=== PATIENT | female | born 1935 | race Two or more races ===

== ENCOUNTER 2016-09-09 15:36 | Inpatient (IN) | payer MEDICARE, OTHER ==
[2016-09-09] VITALS (7 sets, daily range): BP systolic 94–114; BP diastolic 30–61
[~2016-09-09] VITALS: Ht 165.1 cm; Wt 63.5 kg
[~2016-09-09 15:36] MED LIST: IV NS 0.9% 1,000 ML ONE; IV SET PRIMARY 1 EA INFUS.SET MC ONE
--- NOTE | 2016-09-09 15:36 | NUR ---
BIB RA FROM HOME C/O WEAKNESS AND HYPOTENSIVE SBP 71. NAD NOTED. PT AAO X3, SRI LANKAN SPEAKER. DTR AT BEDSIDE. PT PLACED IN GOWN AND MONITOR. AWAITING MD FOR EVAL.
[2016-09-09] MEDS ORDERED: IV NS 0.9% 1,000 ML ONE (15:46)
[2016-09-09] MEDS ORDERED: SECONDARY IV SET 1 EA INFUS.SET MC ONE ×2 (15:46→18:31)
[2016-09-09 15:58] LABS: BASOPHILS # (AUTO) 0.4 /CMM (0.0-0.2); BASOPHILS % (AUTO) 2.9 % (0.0-2.0); EOSINOPHILS # (AUTO) 0.2 /CMM (0.0-0.7); EOSINOPHILS % (AUTO) 1.5 % (0.0-6.0); HEMATOCRIT 38 % (33-45); HEMOGLOBIN 12.8 g/dL (11.5-14.8); LYMPHOCYTES # (AUTO) 1.5 /CMM (0.8-4.8); LYMPHOCYTES % (AUTO) 11.1 % (20.0-44.0); MEAN CORPUSCULAR HEMOGLOBIN 28 PG (26.0-33.0); MEAN CORPUSCULAR HGB CONC 34 g/dl (31.0-36.0); MEAN CORPUSCULAR VOLUME 85 fL (82-100); MONOCYTES # (AUTO) 0.5 /CMM (0.1-1.30); MONOCYTES % (AUTO) 3.9 % (2.0-12.0); NEUTROPHILS # (AUTO) 10.9 /CMM (1.8-8.9); NEUTROPHILS % (AUTO) 80.6 % (43.0-81.0); PLATELET COUNT (AUTO) 173 /CMM (150-450); RDW COEFFICIENT OF VARIATION 12.2 (11.5-15.0); RED BLOOD CELL COUNT(AUTO) 4.49 MIL/uL (4.0-5.2); WHITE BLOOD COUNT (AUTO) 13.5 K/uL (4.3-11.0)
[2016-09-09] MEDS ORDERED: IV NS 0.9% 1,000 ML BAG IV ONE (16:00)
[2016-09-09 16:11] LABS: ACETAMINOPHEN 0 ug/ml (10-30); ALANINE AMINOTRANSFERASE 482 U/L (12-78); ALBUMIN 2.4 g/dL (3.4-5.0); ALKALINE PHOSPHATASE 57 U/L (46-116); ASPARTATE AMINOTRANSFERASE 363 U/L (15-37); BILIRUBIN,DIRECT 0.1 mg/dL (0.0-0.2); BILIRUBIN,TOTAL 0.4 mg/dL (0.2-1.0); CALCIUM, SERUM 9.5 mg/dL (8.5-10.1); CARBON DIOXIDE 18 mmol/L (21-32); CHLORIDE 100 mmol/L (98-107); GLUCOSE 117 mg/dL (74-106); POTASSIUM 4.6 mmol/L (3.5-5.1); SALICYLATE 2.5 mg/dL (2.8-20.0); SODIUM SERUM 135 mmol/L (136-145); TOTAL PROTEIN, SERUM 6.3 g/dL (6.4-8.2)
[2016-09-09 16:13] LABS: TROPONIN I < 0.017 ng/mL (0.00-0.056); UREA NITROGEN, BLOOD 117 mg/dL (7-18)
--- NOTE | 2016-09-09 16:13 | NUR ---
bun 117 reported by lab
[2016-09-09 16:19] LABS: INR 0.95 (0.87-1.13); PROTHROMBIN TIME 9.9 SECS (9.5-12.7)
[2016-09-09 16:29] LABS: SERUM AMMONIA 19 umol/L (11-32)
[2016-09-09 16:35] LABS: LACTIC ACID 1.6 mmol/L (0.4-2.0)
--- NOTE | 2016-09-09 16:41 | NUR ---
CALLED NURSING SUP FOR MED SURG BED
--- NOTE | 2016-09-09 16:44 | NUR ---
CALLED PANEL DR LEIDY ARMENTA PAGED
[2016-09-09 16:47] LABS: PARTIAL THROMBOPLASTIN TIME > 170 SEC (23-34)
--- NOTE | 2016-09-09 16:53 | NUR ---
PT REFUSED ULTRASOUND. AWARE.
--- NOTE | 2016-09-09 16:54 | NUR ---
CANCELLED MS BED AND INFORMED DR.SAM Foster THAT WE MEANT TO PAGE HIM FOR BED 7 NOT THIS PT.
[2016-09-09 16:55] LABS: CREATINE KINASE MB 122.4 ng/mL (0-3.6)
[2016-09-09] MEDS ORDERED: CALC0.258 PO (16:58)
[2016-09-09] MEDS ORDERED: IBAN150T PO (16:58)
[2016-09-09] MEDS ORDERED: CELE50CA PO (16:58)
[2016-09-09] MEDS ORDERED: MIRT30TA7 PO (16:58)
[2016-09-09] MEDS ORDERED: ZOLP5TAB2 PO (16:58)
[2016-09-09] MEDS ORDERED: SUMA100T PO (16:58)
[2016-09-09] MEDS ORDERED: EZET10TA PO (16:58)
[2016-09-09] MEDS ORDERED: CALC500T51 PO (16:58)
[2016-09-09] MEDS ORDERED: CHOL200026 PO (16:58)
[2016-09-09] MEDS ORDERED: SPIR25TA PO (16:58)
[2016-09-09] MEDS ORDERED: ASPI81TA2 PO (16:58)
[2016-09-09] MEDS ORDERED: MEMA1CAP4 PO (16:58)
[2016-09-09] MEDS ORDERED: TRAM50TA2 PO (16:58)
[2016-09-09] MEDS ORDERED: SIMV40TA5 PO (16:58)
[2016-09-09] MEDS ORDERED: DONE10TA44 PO (16:58)
[2016-09-09] MEDS ORDERED: CLOP75TA2 PO (16:58)
[2016-09-09] MEDS ORDERED: TOPI-67 PO (16:58)
[2016-09-09] MEDS ORDERED: IBUP-1482 PO (16:58)
[2016-09-09] MEDS ORDERED: IV NS 0.9% 500 ML BAG IV ONE (17:00)
--- NOTE | 2016-09-09 17:17 | NUR ---
DR FORBES AT BEDSIDE FOR EVAL.
[2016-09-09] MEDS ORDERED: VANCOMYCIN 0.75 GM in IV D5W 250 ML IV ONE (17:30)
[2016-09-09] MEDS ORDERED: PIPERACILLIN /TAZOBACTAM 2.25 G in IV D5W 50 ML IV ONE (17:30)
[2016-09-09] MEDS ORDERED: IV SET PRIMARY PUMP SET 1 EA INFUS.SET MC ONE ×2 (17:37→18:31)
--- NOTE | 2016-09-09 17:37 | NUR ---
REPORT GIVEN TO STEVE DEL VALLE FOR RAFI
--- NOTE | 2016-09-09 17:37 | NUR ---
RN NOTES RECEIVED REPORT FROM LABORER DAIRY FARMELIGIO EVERETT, AWAITING FOR PTS ARRIVAL TO UNIT.
[2016-09-09 17:53] LABS: APPEARANCE,URINE Clear (CLEAR); BILIRUBIN,URINE Negative (NEGATIVE); BLOOD, URINE Moderate Ery/uL (NEGATIVE); COLOR,URINE Yellow (YELLOW); KETONES,URINE Negative (NEGATIVE); LEUKOCYTE ESTERASE ,URINE Small (NEGATIVE); NITRITE, URINE Negative (NEGATIVE); PH,URINE 5.5 (5.0-8.0); PROTEIN,URINE Trace mg/dl (NEGATIVE); UGLUCOSE Negative (NEGATIVE); UROBILINOGEN,URINE 0.2 EU/dL (0.2)
[2016-09-09] MEDS ORDERED: IV NS 0.9% 1,000 ML IV PRN (17:53)
[2016-09-09] MEDS ORDERED: ONDANSETRON HCL/PF 4 MG/2 ML VIAL IVP PRN (18:00)
[2016-09-09 18:15] LABS: ADD URINE CULTURE YES; BACTERIA,URINE Many /HPF (None Seen); SQUAMOUS EPITHELIAL CELL,UR Few /HPF (None Seen)
--- NOTE | 2016-09-09 19:31 | NUR ---
PEDIGREE TRACER NOTE 182: Admitted 80y/o Polish speaking from ER. Noted with confusion, able to follow commands. No respiratory distress noted, on 2LPM of O2 via NC tolerated well. With PIVs itnact, with episode of removing LFA PIV, placed new g20 on LFA, with RAC g18. Vanco ongoing, started on IVF NS @75. 1850: Sanford cath inserted as ordered, patient tolerated well. gathered 850mL of clear yellow urine. Daughter came and did translation for the patient. Endorsed to Linda RN for RAFI. No active bleeding noted at this time. Skin assessment done, taken pictures and attached to chart. Followed up with Nsg Wood Tile Installer for food for the patient, kitchen is close, patient aware.
--- NOTE | 2016-09-09 20:00 | NUR ---
INSTRUCTIONAL ASSISTANT RECEIVED PT IN BED AWAKE AND ALERT PER DAUGHTER. PT IS SLOVAK SPEAKING. IV ACCESS INTACT AND PATENT. IVF RUNNING WELL. FC IN PLACE . PT ON 2L NO SOB NOTED. WARM BLANKETS PROVIDED. SNACK PROVIDED. PTS DAUGHTER IS REQUESTING SLEEP AID. SPOKE TO HEALTH FACILITIES SURVEYOR DR BOSS . GAVE ON TIME ORDER FOR KATIUSKA .
--- NOTE | 2016-09-09 20:10 | NUR ---
ENTERPRISE PROJECT MANAGER KATIUSKA NOT GIVEN DUE TO LOW BP . WILL CONTINUE TO MONITOR .
[2016-09-09] MEDS ORDERED: ZOLPIDEM TARTRATE 5 MG TABLET PO ONE (20:30)
--- NOTE | 2016-09-09 22:05 | NUR ---
FORENSIC NURSE PT CKMB AND TROPONIN ELEVATED . DR BOSS AWARE . ORDERED TO RECHECK IN AM
[2016-09-10] VITALS (44 sets, daily range): BP systolic 70–104; BP diastolic 26–59
--- NOTE | 2016-09-10 01:00 | NUR ---
GERIATRIC NURSE PT IS AGITATED AND CONFUSED. PT ATTEMPTING TO GET OOB . PT ALSO PULLED OUT IV CATHETERS DESPITE CLOSE SUPERVISION .. CATHETER TIPS INTACT. DR BOSS AT BEDSIDE AND GAVE ORDER FOR RESTRAINTS .
[2016-09-10] MEDS ORDERED: IV SET PRIMARY PUMP SET 1 EA INFUS.SET MC ONE (03:16)
[2016-09-10 05:14] LABS: BASOPHILS % (AUTO) 0.3 % (0.0-2.0); EOSINOPHILS # (AUTO) 0.2 /CMM (0.0-0.7); EOSINOPHILS % (AUTO) 1.7 % (0.0-6.0); HEMATOCRIT 36 % (33-45); HEMOGLOBIN 11.9 g/dL (11.5-14.8); LYMPHOCYTES # (AUTO) 1.1 /CMM (0.8-4.8); LYMPHOCYTES % (AUTO) 8.1 % (20.0-44.0); MEAN CORPUSCULAR HEMOGLOBIN 28 PG (26.0-33.0); MEAN CORPUSCULAR HGB CONC 33 g/dl (31.0-36.0); MEAN CORPUSCULAR VOLUME 85 fL (82-100); MONOCYTES # (AUTO) 0.6 /CMM (0.1-1.30); MONOCYTES % (AUTO) 4.7 % (2.0-12.0); NEUTROPHILS # (AUTO) 11.6 /CMM (1.8-8.9); NEUTROPHILS % (AUTO) 85.2 % (43.0-81.0); PLATELET COUNT (AUTO) 269 /CMM (150-450); RDW COEFFICIENT OF VARIATION 13.6 (11.5-15.0); RED BLOOD CELL COUNT(AUTO) 4.21 MIL/uL (4.0-5.2); WHITE BLOOD COUNT (AUTO) 13.7 K/uL (4.3-11.0)
[2016-09-10 05:34] LABS: ALBUMIN 2.2 g/dL (3.4-5.0); BILIRUBIN,TOTAL 0.5 mg/dL (0.2-1.0); CALCIUM, SERUM 9.3 mg/dL (8.5-10.1); MAGNESIUM 2.1 mg/dL (1.8-2.4); PHOSPHORUS 5.7 mg/dL (2.5-4.9); POTASSIUM 3.6 mmol/L (3.5-5.1); TOTAL PROTEIN, SERUM 5.6 g/dL (6.4-8.2)
[2016-09-10 05:46] LABS: THYROID STIMULATING HORMONE 1.49 uIU/mL (0.358-3.74)
[2016-09-10] MEDS: IV NS 0.9% 1,000 ML IV PRN ×3 (07:00→23:19)
--- NOTE | 2016-09-10 07:18 | NUR ---
RESTAURANT SHIFT SUPERVISOR NOTES RECEIVED PATIENT AOX2 CONFUSED , REORIENT PT TO PLACE DATE AND TIME , NOT IN ACUTE DISTRESS , RESPIRATIONS EVEN AND UNLABORED , SPO2 OF 98% VIA RA , SR 78 ON BEDSIDE MONITOR , FC DRAINING WELL VIA GRAVITY WITH CLEAR YELLOW URINE , IV OF L FA # 22 , LFA # 22 PATENT AND INTACT WITH IVF OF NS @ 125ML/HR INFUSING WELL , ALL NEEDS ATTENDED , BED ON LOW AND LOCKED POSITION , SIDE RAILS X2 ,CALL LIGHT WITHIN REACH , WILL CONTINUE TO MONITOR .
--- NOTE | 2016-09-10 07:27 | NUR ---
RN :UPDATES GIVEN TO DAUGHTER. AWARE OF USE OF RESTRAINTS AND AGREED WITH PLAN OF CARE.
[2016-09-10] MEDS: PANTOPRAZOLE 40 MG TABLET.DR PO SCH (08:10)
--- NOTE | 2016-09-10 08:12 | NUR ---
WOUND CARE CONSULT: PT PRESENTS WITH LEFT ANKLE OPEN WOUND AND PROXIMAL AREA OF INTACT BLISTERING, PRESENT ON ADMISSION. LEFT LEG IS QUITE EDEMATOUS. LEG ELEVATED ON PILLOW. RECOMMEND SURGICAL CONSULT. RECOMMENDATIONS MADE FOR WOUND CARE AND SKIN PROTECTION. DISCUSSED WITH NURSING STAFF. PT ON [employer] PRESSURE REDISTRIBUTION MATTRESS. WILL SEE PRN. RAYMUNDO IN AGREEMENT WITH PLAN OF CARE. Addendum: 09/10/16 at 813 by AYAZ LANCE Amended: Links added. Addendum: 09/10/16 at 14 by AYAZ MCGUIREU DENIS SCORE IS 15.
--- NOTE | 2016-09-10 08:15 | NUR ---
VETERINARY ATTENDANT NOTES WOUND NURSE AT BEDSIDE FOR WOUND EVALUATION , WOUND TREATMENT CARRIED OUT , WILL CONTINUE TO MONITOR
[2016-09-10] MEDS ORDERED: HYDROGEL DRESSING 90 GM TUBE TP PRN (08:30)
[2016-09-10] MEDS: HYDROGEL DRESSING 90 GM TUBE TP SCH (09:02)
--- NOTE | 2016-09-10 10:54 | NUR ---
LOCAL COMPANY TANKER DRIVER NOTES DR HERNANDEZ AT BEDSIDE , NOTIFIED PT CC AND DIAGNOSIS , NOTIFIED PT URINALYSIS , AND LABORATORY RESULT FOR TODAY , PT HAS LEFT ANKLE WOUND WITH MINIMAL YELLOWISH DRAINAGE , WBC OF 13.7 , AFEBRILE , URINE CULTURE SHOWS GRAM NEGATIVE RODS , BLOOD CULTURE PRELIMINARY NO GROWTH , ON IVF OF NS @ 125ML/HR , PER MD OBTAIN WOUND CULTURE OF LEFT ANKLE . ORDERS CARRIED OUT
--- NOTE | 2016-09-10 10:58 | NUR ---
FORMULATION CHEMIST NOTES WOUND CULTURE OF THE LEFT ANKLE OBTAINED AND SENT TO LAB
--- NOTE | 2016-09-10 11:30 | NUR ---
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
--- NOTE | 2016-09-10 14:20 | NUR ---
SNAKER TRACTOR DRIVER NOTES DR FORBES AT BEDSIDE NOTIFIED PT LABS , NO IV ANTIBIOTIC ORDERED . PER MD ORDER START PT ZOSYN 2.25 Q8 , LEFT ANKLE WOUND XRAY RESULT RELAYED , DR SINGH ORDERED DUPLEX VENOUS STUDIES ,TO R/O DVT , BUN 101 . CREA 4.0 WITH GOOD URINE OUTPUT , SR 65 ON BEDSIDE MONITOR , ON IVF OF NS @ 125ML/HR , MD AWARE .
[2016-09-10] MEDS ORDERED: SECONDARY IV SET 1 EA INFUS.SET MC ONE (14:24)
--- NOTE | 2016-09-10 14:40 | NUR ---
RESTORATIVE ART EMBALMER NOTES DR KHOURY AT BEDSIDE TO EVALUATE LEFT ANKLE WOUND , WOUND TX ORDERS CARRIED OUT ,WILL CONTINUE TO MONITOR
[2016-09-10] MEDS: PIPERACILLIN /TAZOBACTAM 2.25 G in IV D5W 50 ML IV SCH ×2 (14:50→21:51)
[2016-09-10] MEDS ORDERED: FEE PK DOSING 1 MIN EA MC ONE (16:11)
[2016-09-10] MEDS: SILVER SULFADIAZINE CREAM 25 GM TUBE TP SCH (16:31)
[2016-09-11] VITALS (19 sets, daily range): BP systolic 91–132; BP diastolic 49–65
[2016-09-11 04:55] LABS: BASOPHILS % (AUTO) 0.4 % (0.0-2.0); EOSINOPHILS # (AUTO) 0.2 /CMM (0.0-0.7); HEMATOCRIT 30 % (33-45); HEMOGLOBIN 10.2 g/dL (11.5-14.8); LYMPHOCYTES # (AUTO) 1.3 /CMM (0.8-4.8); LYMPHOCYTES % (AUTO) 11.8 % (20.0-44.0); MEAN CORPUSCULAR HEMOGLOBIN 29 PG (26.0-33.0); MEAN CORPUSCULAR HGB CONC 34 g/dl (31.0-36.0); MEAN CORPUSCULAR VOLUME 85 fL (82-100); MONOCYTES # (AUTO) 0.8 /CMM (0.1-1.30); MONOCYTES % (AUTO) 7.1 % (2.0-12.0); NEUTROPHILS # (AUTO) 8.3 /CMM (1.8-8.9); NEUTROPHILS % (AUTO) 78.7 % (43.0-81.0); PLATELET COUNT (AUTO) 244 /CMM (150-450); RDW COEFFICIENT OF VARIATION 13.5 (11.5-15.0); RED BLOOD CELL COUNT(AUTO) 3.57 MIL/uL (4.0-5.2); WHITE BLOOD COUNT (AUTO) 10.6 K/uL (4.3-11.0)
[2016-09-11 05:08] LABS: ALBUMIN 1.9 g/dL (3.4-5.0); BILIRUBIN,TOTAL 0.6 mg/dL (0.2-1.0); CALCIUM, SERUM 8.7 mg/dL (8.5-10.1); CREATININE 2.6 mg/dL (0.6-1.3); MAGNESIUM 1.7 mg/dL (1.8-2.4); PHOSPHORUS 4.1 mg/dL (2.5-4.9); POTASSIUM 3.2 mmol/L (3.5-5.1); TOTAL PROTEIN, SERUM 4.9 g/dL (6.4-8.2)
[2016-09-11] MEDS: PIPERACILLIN /TAZOBACTAM 2.25 G in IV D5W 50 ML IV SCH ×2 (05:09→11:59)
[2016-09-11 05:11] LABS: TROPONIN I 0.035 ng/mL (0.00-0.056)
[2016-09-11 06:26] LABS: CREATINE KINASE MB 36.8 ng/mL (0-3.6)
[2016-09-11] MEDS: IV NS 0.9% 1,000 ML IV PRN (07:22)
[2016-09-11 07:59] LABS: APPEARANCE,URINE CLEAR (CLEAR); BILIRUBIN,URINE NEGATIVE (NEGATIVE); BLOOD, URINE 1+ Ery/uL (NEGATIVE); COLOR,URINE YELLOW (YELLOW); KETONES,URINE NEGATIVE (NEGATIVE); LEUKOCYTE ESTERASE ,URINE NEGATIVE (NEGATIVE); NITRITE, URINE NEGATIVE (NEGATIVE); PROTEIN,URINE NEGATIVE (NEGATIVE); UGLUCOSE NEGATIVE (NEGATIVE); UROBILINOGEN,URINE 0.2 EU/dL (0.2)
[2016-09-11 08:07] LABS: CREATININE, URINE 44.8 MG/DL (30.0-125.0)
[2016-09-11] MEDS ORDERED: SECONDARY IV SET 1 EA INFUS.SET MC ONE ×3 (08:40→21:50)
[2016-09-11] MEDS: HYDROGEL DRESSING 90 GM TUBE TP SCH (08:46)
[2016-09-11] MEDS: POTASSIUM CHLORIDE 20 MEQ TAB.PRT.SR PO SCH ×2 (08:46→10:07)
[2016-09-11] MEDS: PANTOPRAZOLE 40 MG TABLET.DR PO SCH (08:46)
[2016-09-11] MEDS: Magnesium 1GM/D5W 100ML PREMIX 100 ML IV SCH ×2 (08:46→10:07)
[2016-09-11] MEDS: SILVER SULFADIAZINE CREAM 25 GM TUBE TP SCH ×2 (08:47→17:07)
[2016-09-11 09:34] LABS: ADD URINE CULTURE NO; BACTERIA,URINE None seen /HPF (None Seen); RBC,URINE 0-2 /HPF (0-2); SQUAMOUS EPITHELIAL CELL,UR Few /HPF (None Seen); WBC,URINE NONE SEEN /HPF (0-3)
[2016-09-11 09:56] LABS: EOSINOPHIL,URINE None Seen
--- NOTE | 2016-09-11 12:00 | NUR ---
KITCHEN SUPERVISOR ADMITTING NOTES: Rec'd pt from RIGHT OF WAY CUTTER Spike, A&O x2 w/ periods of confusion, not in any distress, denies chest pain. Pt on room air saturating at 93%, no SOB. On telemonitoring, SR w/ HR 64. Pt has 2 L FA G22, #1 infusing w/ NS 1L x 125 cc/hr, #2 SL, flushed, both patent & intact w/ no signs of infection/ infiltration noted. Pt has L ankle wound w/ intact dressing. Has B soft restraints on wrist, checked & monitored skin & circulation. Provided comfort & safety measures. Bed kept low & in locked position. Call light placed w/in reached. Will continue to monitor.
[2016-09-11] MEDS: Potassium Chloride 40 MEQ in IV D5W 1,000 ML IV PRN (14:21)
[2016-09-11] MEDS ORDERED: VANCOMYCIN 0.75 GM in IV D5W 250 ML IV SCH (15:00)
[2016-09-11] MEDS ORDERED: IV SET PRIMARY PUMP SET 1 EA INFUS.SET MC ONE (16:56)
[2016-09-11] MEDS: LACTOBACILLUS RHAMNOSUS GG 1 EACH CAP.SPRINK PO SCH (17:06)
--- NOTE | 2016-09-11 19:00 | NUR ---
COPY CENTER SPECIALIST CLOSING NOTES: No acute changes w/in shift. Pt not in any distress on room air. On telemonitor pt is SR, HR at 65. Pt kept on bilateral soft restraints, pulled one of her IV line LFA G22. Pt's other LFA G22 w/ KCL 40 meqs in 1L D5W infusing well, patent, C/D/I, no signs of infection/ infiltration noted. Pt's FC patent & intact draining to adequate yellow urine output. Offered bed bath but pt's son Keo said to let her rest for now. Turned & repositioned, offload heels. Kept dry, warm & comfortable. Wound care done. Needs attended. Call light placed w/in reached. Bed kept low & in locked position. Endorsed to PM ELIGIO Servin for RAFI.
--- NOTE | 2016-09-11 19:30 | NUR ---
RN INITIAL NOTE RECEIVED PT IN NO ACUTE DISTRESS IN BED. PT IS A/O X 2 AND IS BRAZILIAN SPEAKING. PT IS ON RA AND TOLERATING WELL WITH O2 SAT @ 98%. PT IS ON TELE WITH SR ON THE MONITOR. PT HAS F/C THAT IS CLEAN DRY INTACT AND PATENT WITH CLEAR LUIS COLOR URINE DRAINING. PT HAS LFA 22G THAT IS CLEAN DRY INTACT AND PATENT WITH KCL 40MEQ IN D5W @ 125ML/HR. BED IN LOW LOCK POSITION WITH RIALS UP X 2. CALL LIGHT WITHIN REACH AND ALL SAFETY MEASURES ENSURED AND CARRIED OUT. WILL CONTINUE TO MONITOR PT.
[2016-09-11] MEDS: CEFAZOLIN 1 GM in IV D5W 50 ML IV SCH (21:51)
[2016-09-11] MEDS ORDERED: risperiDONE 0.25 MG TABLET PO SCH (22:00)
[2016-09-11] MEDS: MIRTAZAPINE 15 MG TABLET PO SCH (22:00)
[2016-09-12] VITALS: BP 112/57
[2016-09-12] MEDS: Potassium Chloride 40 MEQ in IV D5W 1,000 ML IV PRN ×2 (01:16→13:34)
[2016-09-12 04:00] VITALS: BP 123/63
[2016-09-12] MEDS: CEFAZOLIN 1 GM in IV D5W 50 ML IV SCH ×3 (06:01→21:47)
[2016-09-12 06:05] LABS: BASOPHILS % (AUTO) 0.4 % (0.0-2.0); EOSINOPHILS # (AUTO) 0.2 /CMM (0.0-0.7); EOSINOPHILS % (AUTO) 2.2 % (0.0-6.0); HEMATOCRIT 31 % (33-45); HEMOGLOBIN 10.3 g/dL (11.5-14.8); LYMPHOCYTES # (AUTO) 1.8 /CMM (0.8-4.8); LYMPHOCYTES % (AUTO) 16.1 % (20.0-44.0); MEAN CORPUSCULAR HEMOGLOBIN 28 PG (26.0-33.0); MEAN CORPUSCULAR HGB CONC 33 g/dl (31.0-36.0); MEAN CORPUSCULAR VOLUME 84 fL (82-100); MONOCYTES # (AUTO) 0.9 /CMM (0.1-1.30); MONOCYTES % (AUTO) 7.9 % (2.0-12.0); NEUTROPHILS # (AUTO) 8.3 /CMM (1.8-8.9); NEUTROPHILS % (AUTO) 73.4 % (43.0-81.0); PLATELET COUNT (AUTO) 234 /CMM (150-450); RDW COEFFICIENT OF VARIATION 13.3 (11.5-15.0); RED BLOOD CELL COUNT(AUTO) 3.67 MIL/uL (4.0-5.2); WHITE BLOOD COUNT (AUTO) 11.4 K/uL (4.3-11.0)
[2016-09-12 06:19] LABS: ALBUMIN 1.8 g/dL (3.4-5.0); BILIRUBIN,TOTAL 0.4 mg/dL (0.2-1.0); CALCIUM, SERUM 8.1 mg/dL (8.5-10.1); CREATININE 1.7 mg/dL (0.6-1.3); MAGNESIUM 1.5 mg/dL (1.8-2.4); PHOSPHORUS 1.4 mg/dL (2.5-4.9); POTASSIUM 3.6 mmol/L (3.5-5.1); TOTAL PROTEIN, SERUM 4.7 g/dL (6.4-8.2)
--- NOTE | 2016-09-12 06:44 | NUR ---
RN CLOSING NOTE PT REMAINS IN NO ACUTE DISTRESS. PT DID NOT HAVE ANY SIGNIFICANT CHANGE IN CONDITION DURING SHIFT. ALL NEEDS MET ALL ORDERS CARRIED OUT. WILL ENDORSE TO AM RN FOR CONTINUITY OF CARE.
--- NOTE | 2016-09-12 07:20 | NUR ---
RN INITIAL NOTES: Rec'd pt asleep on bed, easily arousable, A&O x2 w/ periods of confusion, not in any distress, denies chest pain. Pt on room air saturating at 90%, no SOB. On telemonitoring, SR w/ HR 65. Pt has L FA G22, infusing w/ KCL 40 meqs in D5W at 125 cc/hr, infusing well, patent & intact w/ no signs of infection/ infiltration noted. Has FC patent & intact draining to adequate yellow urine output. Pt has L ankle wound w/ intact dressing. Has B soft restraints on wrist, checked & monitored skin & circulation. Kept warm & comfortable. Bed kept low & in locked position. Will turn & reposition, offload heels as per protocol. Call light placed w/in reached. Will continue to monitor.
[2016-09-12 08:00] VITALS: BP 132/64
--- NOTE | 2016-09-12 08:00 | NUR ---
RN NOTES: Pt seen & examined by Dr. Fortune w/ orders made & carried out.
[2016-09-12] MEDS ORDERED: POTASSIUM PHOSPHATE MM 15 MMOL in IV D5W 250 ML IV SCH (08:30)
[2016-09-12] MEDS: PANTOPRAZOLE 40 MG TABLET.DR PO SCH (08:56)
[2016-09-12] MEDS: LACTOBACILLUS RHAMNOSUS GG 1 EACH CAP.SPRINK PO SCH ×2 (08:56→17:30)
[2016-09-12] MEDS ORDERED: POTASSIUM PHOSPHATE MM 7.5 MMOL in IV D5W 100 ML IV SCH (09:00)
[2016-09-12] MEDS ORDERED: SECONDARY IV SET 1 EA INFUS.SET MC ONE (09:37)
[2016-09-12] MEDS: HYDROGEL DRESSING 90 GM TUBE TP SCH (09:42)
[2016-09-12] MEDS: Magnesium 1GM/D5W 100ML PREMIX 100 ML IV SCH ×2 (09:42→10:48)
[2016-09-12] MEDS: SILVER SULFADIAZINE CREAM 25 GM TUBE TP SCH ×2 (09:42→17:30)
[2016-09-12] MEDS ORDERED: IV SET PRIMARY 1 EA INFUS.SET MC ONE (10:02)
[2016-09-12] MEDS ORDERED: IV SET PRIMARY PUMP SET 1 EA INFUS.SET MC ONE (10:13)
[2016-09-12] MEDS: POTASSIUM PHOSPHATE MM 7.5 MMOL in IV D5W 100 ML IV SCH ×2 (10:34→12:30)
--- NOTE | 2016-09-12 11:15 | NUR ---
RN NOTES: Pt seen & examined by Dr. Loyd.
[2016-09-12 12:42] LABS: *SPE ALBUMIN 2.1 g/dL (2.9-4.4); *SPE ALPHA-1-GLOBULIN 0.3 g/dL (0.0-0.4); *SPE ALPHA-2-GLOBULIN 0.8 g/dL (0.4-1.0); *SPE BETA GLOBULIN 0.6 g/dL (0.7-1.3); *SPE GLOBULIN, TOTAL 2.1 g/dL (2.2-3.9); *SPE M-SPIKE Not Observed g/dL (Not Observed); *SPE PROTEIN TOTAL 4.2 g/dL (6.0-8.5); *SPEGAMMA GLOBULIN 0.4 g/dL (0.4-1.8); VIT D, 25-HYDROXY 40.1 ng/mL (30.0-100.0)
--- NOTE | 2016-09-12 14:00 | NUR ---
RN NOTES: PT evaluation done c/o Viridiana.
[2016-09-12 14:03] LABS: PTH, INTACT 12 pg/mL (15-65)
[2016-09-12 16:00] VITALS: BP 119/60
[2016-09-12] MEDS ORDERED: IV NS 0.9% 250 ML IV ONE (17:00)
[2016-09-12] MEDS ORDERED: VANCOMYCIN 0.75 GM in IV D5W 250 ML IV SCH (17:00)
[2016-09-12] MEDS ORDERED: VANCOMYCIN 1 GM in IV D5W 250 ML IV SCH (18:00)
--- NOTE | 2016-09-12 18:36 | NUR ---
RN CLOSING NOTES: No acute changes w/in shift. Pt A&Ox2 still w/ periods of confusion, not in any distress. Pt on room air saturating at 97%. Pt has patent & intact FC draining to adequate urine output. Has patent & intact LFA G22 PL with KCL 40 meqs in 1L D5W x 125 cc/hr infusing well, no signs of infection/ infiltration noted. L ankle wound care done. Turned & repositioned, offload heels q2h. Monitored bilateral wrist skin & circulation. Pt kept comfortable, warm & rested. Will endorse to PM RN for RAFI.
--- NOTE | 2016-09-12 19:35 | NUR ---
DIELECTRIC MACHINE OPERATOR DF RECEIVED PT TO ROOM#104 PT A/OX1 CONFUSED.NICARAGUAN SPEAKING. PT AGITATED PT REMOVED SOFT BILATERAL WRIST RESTRAINTS ATTEMPTED TO GET OOB AND REMOVE LEFT AC IV. PT DIRECTED SAFELY BACK TO BED AND PLACED IN SOFT BILATERAL WRIST RESTRAINTS FOR PT SAFETY. PT NON COMPLIANT WITH SAFETY INSTRUCTIONS. PT NON PASHTO SPEAKING LANGUAGE BARRIER. PT SON IS ON HIS WAY. PT VSS,AFERBILE. LEFT LOWER EXTREMITY WOUND WITH DRESSING C/D/I.
[2016-09-12 20:00] VITALS: BP 135/71
--- NOTE | 2016-09-12 20:10 | NUR ---
GRIDDLE COOK DF PT SON AT BEDSIDE PROVIDING TRANSLATION PER SON PT IS CONFUSED AND THINKS SHE IS AT HOME AND THAT THERE ARE STRANGERS IN HER ROOM. PT REORIENTED TO PLACE,TIME,SITUATION. PT ORIENTED TO PERSON ONLY. PT UNCOOPERATIVE WITH MAXX CANNON AND MYSELF WHEN ATTEMPTING TO PROVIDE PT WITH A BED PABON. CIPRIANO GARCIA RN AND RONNIE LILLY PROVIDED PT WITH BED PABON BM LOOSE STOOL X1. MAXX TRUJILLO ASSIGNED TO PT. VSS. NAD NOTED.
[2016-09-12] MEDS: MIRTAZAPINE 15 MG TABLET PO SCH (21:47)
--- NOTE | 2016-09-12 22:25 | NUR ---
RN DF PT SON DEPARTING FOR THE EVENING PT GIVEN REMERON AT PT MORE COOPERATIVE AT THIS TIME. PT PLACED BACK IN SOFT BILATERAL WRIST RESTRAINTS AND BED ALARM ON.
--- NOTE | 2016-09-13 00:32 | NUR ---
RN DF OBSERVED PT ATTEMPTING TO GET OUT OF BED. PT REMOVED RESTRAINTS AND REMOVED LEFT AC G22 WITH TIP INTACT SITE BENIGN. I PLACED A NEW IV TO RIGHT HAND WRAPPED WITH KERLIX WRAP TO PREVENT PT REMOVAL. PT COOPERATIVE.PT PLACED BACK IN BILATERAL SOFT WRIST RESTRAINTS FOR SAFETY. BED ALARM. RN,S WORKSTATION IN FRONT OF PT,S ROOM.
[2016-09-13 04:00] VITALS: BP 127/63
[2016-09-13] MEDS: CEFAZOLIN 1 GM in IV D5W 50 ML IV SCH ×2 (04:17→13:03)
[2016-09-13] MEDS: Potassium Chloride 40 MEQ in IV D5W 1,000 ML IV PRN (04:18)
[2016-09-13] MEDS: MORPHINE SULFATE INJ 2 MG/ML DISP.SYRIN IV PRN ×2 (04:18→10:29)
--- NOTE | 2016-09-13 04:23 | NUR ---
RN DF PT AGITATED,RESTLESS, GUARDING HER LEFT LOWER LEG WOUND. PT REPORTING PAIN TO LLE 5/10. MEDICATED PT WITH MORPHINE 2MG IVP ZOFRAN 4MG(PT FAMILY STATED PT SOMETIMES GETS NAUSEA WITH PAIN MEDICATION) PT VSS BP 112/55 PT A/0X1. AWAKE,RESTLESS, PT SQUIRMING IN THE BED. PT REPOSITIONED FOR COMFORT. WILL MONITOR FOR EFFECT OF MEDICATIONS.
--- NOTE | 2016-09-13 06:36 | NUR ---
WEIGHT CALCULATOR DF PT WAS COOPERATIVE AND RESTRAINTS WERE REMOVED FOR ABOUT AN HOUR. PT GETTING OUT OF BED BED ALARM ACTIVATED. PT WANTING TO WALK AROUND UNIT AND REFUSES TO GET BACK INTO BED ON HER OWN. WITH ASSISTANCE OF NURSE LARA PT SAFELY PLACED BACK TO BED AND REPLACED INTO SOFT BILATERAL WRIST RESTRAINTS.PMSC INTACT. PT SLOVAK SPEAKING WITH DEMENTIA. VSS.NAD NOTED. PT NOW RESTING COMFORTABLY.
[2016-09-13 07:01] LABS: BILIRUBIN,TOTAL 0.6 mg/dL (0.2-1.0); CALCIUM, SERUM 8.2 mg/dL (8.5-10.1); CREATININE 1.3 mg/dL (0.6-1.3); MAGNESIUM 1.6 mg/dL (1.8-2.4); PHOSPHORUS 2.4 mg/dL (2.5-4.9); POTASSIUM 3.7 mmol/L (3.5-5.1); TOTAL PROTEIN, SERUM 4.8 g/dL (6.4-8.2)
--- NOTE | 2016-09-13 07:20 | NUR ---
RN INITIAL NOTES: Received patient on bed during rounds, awake, restless, tries to get out of bed, and tries to pull out IV plug, able to make needs known at times, needs anticipated and attended. With LFA G22 IV Plug flushed with NS and patent with IVF D5W +40meqKCL at 125cc/hr infusing well. On RA saturating good at 96%. HOB elevated, aspiration precaution observed. NO SOB, No LOC, respirations are even and unlabored, no acute distress noted. Kept clean and dry. Provided safety and comfort measures. Bed low and locked position, fall precaution observed. Will turn and reposition, offload heels as per protocol. With Bilateral soft restrainer for safety, circulation checked as per protocol. To continue to monitor accordingly.
[2016-09-13 08:00] VITALS: BP 121/59
[2016-09-13] MEDS: PANTOPRAZOLE 40 MG TABLET.DR PO SCH (08:22)
[2016-09-13] MEDS: Z GUARD REMEDY 2 OZ OINT TP PRN ×2 (08:22→17:01)
[2016-09-13] MEDS: SILVER SULFADIAZINE CREAM 25 GM TUBE TP SCH ×2 (08:22→17:01)
[2016-09-13] MEDS: HYDROGEL DRESSING 90 GM TUBE TP SCH ×2 (08:22→09:00)
[2016-09-13] MEDS: LACTOBACILLUS RHAMNOSUS GG 1 EACH CAP.SPRINK PO SCH ×2 (08:22→17:00)
--- NOTE | 2016-09-13 10:54 | NUR ---
RN NOTES: Bridgette Pharmacist noted to review and replace as per protocol Mg 1.6.
[2016-09-13] MEDS ORDERED: MAGNESIUM OXIDE 400 MG TABLET PO ONE (12:30)
[2016-09-13] MEDS ORDERED: Magnesium 1GM/D5W 100ML PREMIX 100 ML IV SCH (12:30)
--- NOTE | 2016-09-13 14:24 | NUR ---
RN NOTES: Referred to Dr. Loyd, patient pulled out IV Plug, refused reinsertion, as per MD reeves all IVFs and ATB. Ordered levaquin 500mgs per orem Qd
[2016-09-13] MEDS ORDERED: K PHOS NEUTRAL 250 MG TABLET PO ONE (15:30)
[2016-09-13 16:00] VITALS: BP 112/62
[2016-09-13 17:00] VITALS: BP 112/62
[2016-09-13] MEDS: HYDROCODONE/APAP 5/325MG 1 EACH TABLET PO PRN ×2 (17:00→21:23)
--- NOTE | 2016-09-13 17:09 | NUR ---
RN NOTES; Liv reeves, noted Dr. steward orders to put Silvadene to left left ankle wound.
--- NOTE | 2016-09-13 18:25 | NUR ---
RN NOTES: Patient remain stable within shift, no signs and symptoms of distress noted. Patient appears calm and cooperative with care, not restless and agitated, removed Bilateral soft restrainer as patient doesn't try to take out telemonitoring box so far compliant. Fall precaution observed, low bed and locked, bed alarm on. Seen and examined by LAMPS TESTER AND INSPECTOR Judeen with orders noted and carried out. Oral ATB therapy duration as per LAMPS TESTER AND INSPECTOR Judeen will depend on the CT result. To endorsed to next shift for continuity of care.
[2016-09-13] MEDS: CEPHALEXIN MONOHYDRATE 250 MG CAPSULE PO SCH (19:03)
[2016-09-13 20:00] VITALS: BP 101/60
[2016-09-13] MEDS: MIRTAZAPINE 15 MG TABLET PO SCH (21:21)
[2016-09-14] MEDS: CEPHALEXIN MONOHYDRATE 250 MG CAPSULE PO SCH ×3 (00:41→12:38)
[2016-09-14 04:00] VITALS: BP 91/43
--- NOTE | 2016-09-14 07:31 | NUR ---
RN INITIAL NOTE PT RECEIVED IN BED. RESTING COMFORTABLY. NO S/S OF PAIN OR DISCOMFORT. RESPIRATIONS ARE EVEN AND UNLABORED. SATING WELL ON RA. NO S/S OF RESPIRATORY DISTRESS OR SOB. CERRATO CATHETER DRAINING WITH GRAVITY. SAFETY MEASURES IMPLEMENTED. BED IN LOCKED, LOW POSITION. CALL LIGHT WITHIN REACH. WILL CONTINUE TO MONITOR.
[2016-09-14 07:39] LABS: CALCIUM, SERUM 8.3 mg/dL (8.5-10.1); CREATININE 1.1 mg/dL (0.6-1.3); MAGNESIUM 1.4 mg/dL (1.8-2.4); PHOSPHORUS 3.4 mg/dL (2.5-4.9); POTASSIUM 4.1 mmol/L (3.5-5.1)
[2016-09-14 08:00] VITALS: BP 125/56
[2016-09-14] MEDS ORDERED: LEVOFLOXACIN (500MG) 500 MG TABLET PO SCH (09:00)
[2016-09-14] MEDS: PANTOPRAZOLE 40 MG TABLET.DR PO SCH (09:00)
[2016-09-14] MEDS: LACTOBACILLUS RHAMNOSUS GG 1 EACH CAP.SPRINK PO SCH (09:25)
[2016-09-14] MEDS: SILVER SULFADIAZINE CREAM 25 GM TUBE TP SCH (09:25)
[2016-09-14] MEDS: HYDROCODONE/APAP 5/325MG 1 EACH TABLET PO PRN (10:21)
[2016-09-14] MEDS ORDERED: LEVO750T21 PO (11:01)
[2016-09-14] MEDS ORDERED: Magnesium 1GM/D5W 100ML PREMIX 100 ML IV SCH (11:30)
--- NOTE | 2016-09-14 12:07 | NUR ---
RN NOTE PT SUPPOSED TO BE DISCHARGED TODAY. DAUGHTER CONCERNED THAT LEG PAIN IS NOT UNDER CONTROL. MD CARDOZO MADE AWARE
[2016-09-14] MEDS ORDERED: MAGNESIUM OXIDE 400 MG TABLET PO ONE (12:30)
[2016-09-14] MEDS ORDERED: ACETAMINOPHEN 325 MG TABLET PO PRN (14:00)
[2016-09-14] MEDS ORDERED: LEVOFLOXACIN (250MG) 250 MG TABLET PO SCH (15:30)
[2016-09-14 16:00] VITALS: BP 122/60
--- NOTE | 2016-09-14 17:24 | NUR ---
RN CLOSING NOTE PT DISCHARGED HOME. CERRATO CATHETER REMOVED. NO IV LINES TO D/C. SON, JAY PICKED HER UP.
[2016-09-14] MEDS ORDERED: CELECOXIB 100 MG CAPSULE PO PRN (21:00)
[2016-09-16 12:21] LABS: CALCITRIOL VIT D,1, 25 DIHYDRO 18.1 pg/mL (19.9-79.3)
== END 2016-09-14 17:20 | disposition home health service (06) | DRG 871 ==
LOC: ER 15:38 → ICU 17:35 → TELE1 09-11 12:11 → MEDSG1 09-12 10:33
DX: A41.9 Sepsis, unspecified organism (principal); R65.21 Severe sepsis with septic shock; K72.00 Acute and subacute hepatic failure without coma; G92 Toxic encephalopathy; N17.0 Acute kidney failure with tubular necrosis; L03.116 Cellulitis of left lower limb; M62.82 Rhabdomyolysis; N39.0 Urinary tract infection, site not specified; E87.0 Hyperosmolality and hypernatremia; E87.2 Acidosis; F33.2 Major depressive disorder, recurrent severe without psychotic features; L97.329 Non-pressure chronic ulcer of left ankle with unspecified severity; I10 Essential (primary) hypertension; M19.90 Unspecified osteoarthritis, unspecified site; R00.1 Bradycardia, unspecified; B96.20 Unspecified Escherichia coli [E. coli] as the cause of diseases classified elsewhere; E87.6 Hypokalemia; F03.90 Unspecified dementia, unspecified severity, without behavioral disturbance, psychotic disturbance, mood disturbance, and anxiety; I70.0 Atherosclerosis of aorta; K57.90 Diverticulosis of intestine, part unspecified, without perforation or abscess without bleeding; M43.10 Spondylolisthesis, site unspecified; M47.815 Spondylosis without myelopathy or radiculopathy, thoracolumbar region; M85.80 Other specified disorders of bone density and structure, unspecified site; S90.02XA Contusion of left ankle, initial encounter; Z79.82 Long term (current) use of aspirin; Z91.81 History of falling
CPT/HCPCS: 36415; 70450-TC; 71010-TC; 73610-TC; 73700-TC; 80048-TC; 80053-TC; 80061-TC; 80076-TC; 80202-TC; 81000-TC; 82140-TC; 82306; 82550-TC; 82553-TC; 82570-TC; 82652; 83605-TC; 83735-TC; 83970; 84100-TC; 84155; 84155-TC; 84165; 84300-TC; 84443-TC; 84484-TC; 85025-TC; 85730-TC; 87040-TC; 87070-TC; 87081-TC; 87086-TC; 87186-TC; 93307-TC; 93971-TC; 97001-TC; A4606; A6248; G0480; G6039-TC; J0690; J2270; J2405; J2543; J3370; J3475; J3480; J3490; J7030; J7050; J7060; J7070; Z7610

== ENCOUNTER 2022-04-08 18:39 | Inpatient (IN) | payer MEDICARE, OTHER ==
[~2022-04-08] VITALS: Ht 152.4 cm; Wt 77.6 kg
[~2022-04-08 18:39] MED LIST changes: +ASPI-1169 PO; +CALC0.258 PO; +CALC500T53 PO; +CHOL200026 PO; +CLOP75TA15 PO; +DONE10TA44 PO; +EZET10TA16 PO; +IBAN150T16 PO; -IV NS 0.9% 1,000 ML ONE; -IV SET PRIMARY 1 EA INFUS.SET MC ONE; +LEVO750T21 PO; +MEMA1CAP4 PO; +MIRT-91 PO; +SIMV-49 PO; +SUMA100T PO; +TOPI25TA49 PO; +TRAM50TA2 PO; +ZOLP5TAB2 PO
--- NOTE | 2022-04-08 19:50 | NUR ---
CXR DONE AND SENT TO LAB
[2022-04-08] MEDS ORDERED: PIPERACILLIN /TAZOBACTAM 3.375 G in IV D5W 50 ML IV ONE (20:00)
[2022-04-08] MEDS ORDERED: VANCOMYCIN 1 GM in IV D5W 250 ML IV ONE (20:00)
[2022-04-08] MEDS ORDERED: IV NS 0.9% 1,000 ML BAG IV ONE (20:00)
--- NOTE | 2022-04-08 20:03 | NUR ---
COVID SWAB AND INFLUENZA SWAB DONE AND SENT TO LAB
[2022-04-08] MEDS ORDERED: PIPERACILLIN /TAZOBACTAM 3.375 G VIAL IV ONE (20:05)
[2022-04-08 20:34] LABS: BASOPHILS % (AUTO) 0.2 % (0.0-2.0); HEMATOCRIT 37 % (33-45); HEMOGLOBIN 11.9 g/dL (11.5-14.8); LYMPHOCYTES # (AUTO) 0.8 K/uL (0.8-4.8); LYMPHOCYTES % (AUTO) 4.5 % (20.0-44.0); MEAN CORPUSCULAR HGB CONC 32 g/dl (31.0-36.0); MEAN CORPUSCULAR VOLUME 85 fL (82-100); MONOCYTES % (AUTO) 5.6 % (2.0-12.0); NEUTROPHILS # (AUTO) 16.4 K/uL (1.8-8.9); NEUTROPHILS % (AUTO) 89.7 % (43.0-81.0); PLATELET COUNT (AUTO) 149 K/uL (150-450); WHITE BLOOD COUNT (AUTO) 18.3 K/uL (4.3-11.0)
[2022-04-08 20:43] LABS: CARBON DIOXIDE 26 mmol/L (21-32); CHLORIDE 105 mmol/L (98-107); CREATININE 1.9 mg/dL (0.6-1.3); GLUCOSE 202 mg/dL (74-106); POTASSIUM 3.7 mmol/L (3.5-5.1); SODIUM SERUM 138 mmol/L (136-145); UREA NITROGEN, BLOOD 31 mg/dL (7-18)
--- NOTE | 2022-04-08 20:45 | NUR ---
IV CANNULA G18 INSERTED ON LEFT FA. LINE PATENT AND FLUSHED WITH NS.
[2022-04-08 20:55] LABS: ALANINE AMINOTRANSFERASE 25 U/L (12-78); ALBUMIN 2.8 g/dL (3.4-5.0); ALKALINE PHOSPHATASE 65 U/L (46-116); ASPARTATE AMINOTRANSFERASE 19 U/L (15-37); BILIRUBIN,DIRECT 0.2 mg/dL (0.0-0.2); BILIRUBIN,TOTAL 0.6 mg/dL (0.2-1.0); TOTAL PROTEIN, SERUM 6.4 g/dL (6.4-8.2)
--- NOTE | 2022-04-08 21:00 | NUR ---
IFC F16 INSERTED, URINE SPECIMEN SENT TO LAB
[2022-04-08] MEDS ORDERED: VANCOMYCIN 1 GM VIAL ONE (21:19)
[2022-04-08 21:29] LABS: BILIRUBIN,URINE NEGATIVE (NEGATIVE); COLOR,URINE YELLOW (YELLOW); LEUKOCYTE ESTERASE ,URINE MODERATE (NEGATIVE); NITRITE, URINE POSITIVE (NEGATIVE); PROTEIN,URINE NEGATIVE (NEGATIVE); UGLUCOSE NEGATIVE (NEGATIVE); UROBILINOGEN,URINE 0.2 EU/dL (0.2)
[2022-04-08 21:36] LABS: BACTERIA,URINE Many /HPF (None Seen); SQUAMOUS EPITHELIAL CELL,UR Few /HPF (None Seen)
[2022-04-08] MEDS ORDERED: Z GUARD REMEDY 4 OZ OINT TP PRN (22:30)
[2022-04-08] MEDS ORDERED: HYDROCODONE/APAP 5/325MG TABLET PO PRN (22:30)
[2022-04-08] MEDS ORDERED: TEMAZEPAM 15 MG CAPSULE PO PRN (22:30)
[2022-04-08] MEDS ORDERED: MORPHINE SULFATE INJ 2 MG/ML DISP.SYRIN IV PRN (22:30)
[2022-04-08] MEDS ORDERED: MAG HYDROX/AL HYDROX/SIMETH 30 ML UDC PO PRN (22:30)
[2022-04-08] MEDS ORDERED: LORAZEPAM INJ 2 MG/ML VIAL IV PRN (22:30)
[2022-04-08] MEDS ORDERED: ONDANSETRON HCL/PF 4 MG/2 ML VIAL IVP PRN (22:30)
[2022-04-08] MEDS ORDERED: ACETAMINOPHEN 325 MG TABLET PO PRN (22:30)
[2022-04-08] MEDS ORDERED: MAGNESIUM HYDROXIDE 30 ML UDC PO PRN (22:30)
--- NOTE | 2022-04-08 23:10 | NUR ---
REPORT GIVEN TO RN JESSICA
--- NOTE | 2022-04-08 23:33 | NUR ---
TRANSFERRED TO ROOM
--- NOTE | 2022-04-08 23:45 | NUR ---
ASSOCIATE PROGRAMMERBROADCASTING EQUIPMENT MECHANIC NOTES RECEIVED PATIENT FROM ED VIA GURNEY AT 2321 UNDER THE CARE OF FELIX GARCÍA NP WITH PRIMARY DX OF SEPSIS, UTI AND SECONDARY DX OF ACUTE KIDNEY INJURY. PATIENT IS ASLEEP, ACCOMPANIED BY SON WHO VERBALIZED THAT HIS MOM IS DEMENTED, BUT SHE RESPONDED TO HIS QUESTION. CAYMAN ISLANDER SPEAKING ONLY. BREATHING EVEN AND NON-LABORED ON ROOM AIR. NOT IN APPARENT DISTRESS. NO C/O PAIN OR DISCOMFORT. ON TELE MONITOR READING SINUS RHYTHM AT 74 BPM. HAS LEFT FOREARM IV ACCESS #18G AND SALINE LOCKED. NO S/S OF INFILTRATION NOTED. HAS INDWELLING CERRATO CATHETER DRAINING CLOUDY YELLOW URINE TO BAG BY GRAVITY. SKIN ASSESSMENT DONE AND PHOTOS TAKEN. ALL BELONGINGS ACCOUNTED FOR. BILATERAL SOFT WRIST RESTRAINTS IN PLACE. PATIENT EDUCATION PROVIDED TO SON, VERBALIZED UNDERSTANDING. SAFETY MEASURES IN PLACE: BED LOW AND LOCKED, SIDE RAILS UP X2, CALL LIGHT WITHIN REACH. WILL CONTINUE POC.
[2022-04-09] VITALS (7 sets, daily range): BP systolic 103–157; BP diastolic 43–73
[2022-04-09] MEDS: IV NS 0.9% 1,000 ML IV PRN (00:32)
[2022-04-09] MEDS ORDERED: PIPERACILLIN /TAZOBACTAM 3.375 G VIAL IV ONE (04:34)
[2022-04-09] MEDS ORDERED: PIPERACILLIN /TAZOBACTAM 3.375 G in IV D5W 50 ML IV SCH ×4 (05:00)
[2022-04-09 05:57] LABS: BASOPHILS # (AUTO) 0.1 K/uL (0.0-0.2); BASOPHILS % (AUTO) 0.4 % (0.0-2.0); EOSINOPHILS % (AUTO) 0.4 % (0.0-6.0); HEMATOCRIT 35 % (33-45); HEMOGLOBIN 11.4 g/dL (11.5-14.8); LYMPHOCYTES # (AUTO) 1.5 K/uL (0.8-4.8); LYMPHOCYTES % (AUTO) 8.9 % (20.0-44.0); MEAN CORPUSCULAR HGB CONC 32 g/dl (31.0-36.0); MEAN CORPUSCULAR VOLUME 85 fL (82-100); MONOCYTES # (AUTO) 1.1 K/uL (0.1-1.30); MONOCYTES % (AUTO) 6.8 % (2.0-12.0); NEUTROPHILS # (AUTO) 13.7 K/uL (1.8-8.9); NEUTROPHILS % (AUTO) 83.5 % (43.0-81.0); PLATELET COUNT (AUTO) 136 K/uL (150-450); RED BLOOD CELL COUNT(AUTO) 4.17 MIL/uL (4.0-5.2); WHITE BLOOD COUNT (AUTO) 16.4 K/uL (4.3-11.0)
[2022-04-09 06:16] LABS: CALCIUM, SERUM 8.6 mg/dL (8.5-10.1); CARBON DIOXIDE 24 mmol/L (21-32); CHLORIDE 110 mmol/L (98-107); CREATININE 1.4 mg/dL (0.6-1.3); MAGNESIUM 1.9 mg/dL (1.8-2.4); PHOSPHORUS 3.2 mg/dL (2.5-4.9); POTASSIUM 3.4 mmol/L (3.5-5.1); SODIUM SERUM 142 mmol/L (136-145); UREA NITROGEN, BLOOD 24 mg/dL (7-18)
--- NOTE | 2022-04-09 06:22 | NUR ---
DAY CARE WORKER CLOSING NOTES PATIENT LYING IN BED AWAKE. OPENS EYES TO VERBAL AND TACTILE STIMULI. A/O X1. NO SOB OR NOTED, TOLERATING ROOM AIR WELL. NOT IN ACUTE DISTRESS. CALM AND QUIET AT THIS TIME. NO PAIN OR DISCOMFORT NOTED. AFEBRILE. ON TELE MONITOR READING SINUS RHYTHM WITH PVC AT 73 BPM. HAS LEFT FOREARM IV ACCESS #18G WITH NS RUNNING AT 75 ML/HR. INTACT, PATENT AND FLUSHING. CLEAR YELLOW URINE OUTPUT OF 1800 ML. BILATERAL SOFT WRIST RESTRAINTS IN PLACE, SKIN AND CIRCULATION WNL. ALL DUE MEDS GIVEN AND NEEDS ATTENDED. SAFETY MEASURES MAINTAINED. WILL ENDORSE TO NEXT SHIFT FOR RAFI.
[2022-04-09 06:49] LABS: GLUCOSE 142 mg/dL (74-106)
[2022-04-09 06:52] LABS: THYROID STIMULATING HORMONE 1.321 uIU/mL (0.358-3.74)
[2022-04-09] MEDS: PANTOPRAZOLE 40 MG TABLET.DR PO SCH (07:55)
[2022-04-09] MEDS: ALLOPURINOL 100 MG TABLET PO SCH (08:02)
[2022-04-09] MEDS: CLOPIDOGREL BISULFATE 75 MG TABLET PO SCH (08:02)
[2022-04-09] MEDS: risperiDONE 0.25 MG TABLET PO SCH ×2 (08:02→17:31)
[2022-04-09] MEDS: SERTRALINE HCL 25 MG TABLET PO SCH (08:02)
--- NOTE | 2022-04-09 09:07 | NUR ---
WOUND CARE CONSULT: PT PRESENTS WITH LEFT LOWER LEG DRY WOUND/LESION, PRESENT ON ADMISSION. DPM CONSULT CALLED TO DR GUTIERREZ. RECOMMENDATIONS MADE FOR SKIN PROTECTION. DISCUSSED WITH NURSING STAFF. MD IN AGREEMENT WITH PLAN OF CARE. CERRATO CATH NOTED.
[2022-04-09] MEDS ORDERED: MEMA1CAP3 PO (09:51)
[2022-04-09] MEDS ORDERED: SERT25TA5 PO (09:51)
[2022-04-09] MEDS ORDERED: TRAZ-252 PO (09:51)
[2022-04-09] MEDS ORDERED: ALLO100T PO (09:51)
[2022-04-09] MEDS ORDERED: ROSU40TA23 PO (09:51)
[2022-04-09] MEDS ORDERED: RISP0.2515 PO (09:51)
[2022-04-09] MEDS ORDERED: CHOL100043 PO (09:51)
[2022-04-09] MEDS ORDERED: SPIR25TA6 PO (09:51)
[2022-04-09] MEDS ORDERED: CLOP75TA15 PO (09:51)
[2022-04-09] MEDS ORDERED: CALC500T52 PO (09:51)
[2022-04-09] MEDS ORDERED: TRAM50TA2 PO (09:51)
[2022-04-09] MEDS ORDERED: POTASSIUM CHLORIDE 10 MEQ TABLET.SA PO ONE (10:00)
[2022-04-09] MEDS ORDERED: DORZ10DR11 EACHEYE (10:04)
[2022-04-09] MEDS ORDERED: LATA5DRO EACHEYE (10:04)
[2022-04-09] MEDS: ZOSYN IVPB 2.25 G in IV D5W 50ml IV SCH ×2 (12:02→17:31)
[2022-04-09] MEDS ORDERED: Medication Not On Formulary EA (Memantine HCl/Donepezil HCl (Namzaric 28 mg-10 mg Capsul PO SCH (17:30)
[2022-04-09] MEDS: CALCIUM CARBONATE (1250) 500 MG TABLET PO SCH (17:55)
[2022-04-09] MEDS: VYZULTA 0.024% EACHEYE SCH (17:55)
[2022-04-09] MEDS: EYE EACHEYE SCH (17:55)
[2022-04-09] MEDS ORDERED: Medication Not On Formulary EA (Latanoprostene Bunod (Vyzulta) 1 DROP) EACHEYE SCH (18:00)
--- NOTE | 2022-04-09 18:08 | NUR ---
SHIFT SUMMARY VSS, AFEBRILE, A/O TO SELF, FORGETFUL, FREQUENT RE-ORIENTATION NEEDED. SHE PULLED OUT HER IV ACCESS, NEW IV LINE ON L FA #22, G, NS RUNNING AT 75 ML/HR. SR ON TELEMONITOR. CERRATO CATHETER IN PLACE, DRAINING TO GRAVITY, 2.4L OUTPUT. CAREGIVER AT BEDSIDE. TOLERATING DIET WELL. SAFETY MEASURES MAINTAINED. BED IN LOWEST POSITION, BRAKES LOCKED. SIDE RAILS UP X2. CALL LIGHT WITHIN REACH. WILL ENDORSE CONTINUITY OF CARE TO ONCOMING SHIFT.
[2022-04-09] MEDS ORDERED: TIMOLOL MAL/DORZOLAM HCL OPHTH 10 ML BOTTLE EACHEYE SCH (19:00)
[2022-04-09] MEDS: TIMOLOL MAL/DORZOLAM HCL OPHTH 10 ML BOTTLE EACHEYE SCH (20:00)
--- NOTE | 2022-04-09 20:01 | NUR ---
noc rn opening note received patient in bed, with eyes closed, easy to arouse. daughter at bed side with patient. no s/s of apparent distress on room air. not exhibiting pain via flacc. bila. soft wrist noted in place. tele monitor reading sr with pvc's 70 bpm. lt. fa #22g running ns @75mls/hr. calhoun noted draining clear, juan urine. safety in place. will continue with patient care plan.
[2022-04-10] MEDS: ZOSYN IVPB 2.25 G in IV D5W 50ml IV SCH ×5 (00:07→23:07)
[2022-04-10] MEDS: IV NS 0.9% 1,000 ML IV PRN (04:01)
[2022-04-10 04:19] VITALS: BP 139/69
--- NOTE | 2022-04-10 07:40 | NUR ---
RN OPENING NOTES PATIENT AWAKE IN BED RESTING, A/O X 0-1. NO S/S OF PAIN NOTED AT THIS TIME. ON ROOM AIR, NO DISTRESS OR SHORTNESS OF BREATH NOTED. IV ACCESS LFA #20G, INTACT, PATENT, FLUSHING WELL. PATIENT WITH EXTERNAL KNOCKOUT MAN WITH CURRENT READING OF SR AND HR OF 60, NO CARDIAC DISTRESS NOTED AT THIS TIME. PATIENT HAVE A CERRATO CATHETER IN PLACE AND DRAINING WELL. FALL AND SAFETY MEASURES IN PLACE, BED ALARM ON, BED IN LOW LOCK POSITION, CALL LIGHT AND TABLE WITHIN EASY REACH, SIDE RAILS UP X2. WILL CONTINUE TO MONITOR.
[2022-04-10] MEDS: PANTOPRAZOLE 40 MG TABLET.DR PO SCH (07:41)
--- NOTE | 2022-04-10 07:48 | NUR ---
report given to Mel for continuity of patient care.
[2022-04-10 08:00] VITALS: BP 148/55
[2022-04-10] MEDS: ALLOPURINOL 100 MG TABLET PO SCH (08:51)
[2022-04-10] MEDS: NAMZARIC PO SCH (08:51)
[2022-04-10] MEDS: risperiDONE 0.25 MG TABLET PO SCH ×2 (08:51→17:00)
[2022-04-10] MEDS: CALCIUM CARBONATE (1250) 500 MG TABLET PO SCH ×4 (08:51→17:00)
[2022-04-10] MEDS: TIMOLOL MAL/DORZOLAM HCL OPHTH 10 ML BOTTLE EACHEYE SCH ×2 (08:51→18:57)
[2022-04-10] MEDS: SERTRALINE HCL 25 MG TABLET PO SCH (08:51)
[2022-04-10] MEDS: CLOPIDOGREL BISULFATE 75 MG TABLET PO SCH (08:51)
[2022-04-10] MEDS ORDERED: CALCIUM CARBONATE 500 MG TAB.CHEW PO SCH (09:00)
[2022-04-10 09:17] LABS: BASOPHILS # (AUTO) 0.1 K/uL (0.0-0.2); BASOPHILS % (AUTO) 0.6 % (0.0-2.0); EOSINOPHILS % (AUTO) 1.2 % (0.0-6.0); HEMATOCRIT 37 % (33-45); LYMPHOCYTES # (AUTO) 1.2 K/uL (0.8-4.8); LYMPHOCYTES % (AUTO) 10.4 % (20.0-44.0); MEAN CORPUSCULAR HGB CONC 32 g/dl (31.0-36.0); MEAN CORPUSCULAR VOLUME 85 fL (82-100); MONOCYTES # (AUTO) 0.9 K/uL (0.1-1.30); MONOCYTES % (AUTO) 7.4 % (2.0-12.0); NEUTROPHILS # (AUTO) 9.7 K/uL (1.8-8.9); NEUTROPHILS % (AUTO) 80.4 % (43.0-81.0); PLATELET COUNT (AUTO) 161 K/uL (150-450); RED BLOOD CELL COUNT(AUTO) 4.42 MIL/uL (4.0-5.2)
[2022-04-10 09:27] LABS: CALCIUM, SERUM 8.6 mg/dL (8.5-10.1); CREATININE 1.1 mg/dL (0.6-1.3); POTASSIUM 3.3 mmol/L (3.5-5.1)
[2022-04-10 12:00] VITALS: BP 140/71
[2022-04-10 16:00] VITALS: BP 124/50
[2022-04-10] MEDS: ENSURE ENLIVE 237 ML LIQUID (VANILLA) PO SCH (17:00)
[2022-04-10] MEDS: VYZULTA 0.024% EACHEYE SCH (18:26)
[2022-04-10] MEDS: EYE EACHEYE SCH (18:26)
--- NOTE | 2022-04-10 18:50 | NUR ---
RN NOTE FAMILY REQUESTED TO PLEASE DO NOT ADMINISTERED ATIVAN TO PATIENT, IF PATIENT GET AGITATED AND ANXIOUS DURING THE NIGHT TO PLEASE USE OTHER MEASURES. CHARGE NURSE AWARE, ENDORSE TO FILM LOADER NURSE.
--- NOTE | 2022-04-10 19:30 | NUR ---
RN NOTE PATIENT HAS BEEN SLEEPING DURING THE SHIFT BECAUSE PATIENT DID NOT SLEEP DURING THE WHOLE COMMUNITY WORKER, PATIENT WAS VERY ANXIOUS, AGITATED, REMOVE IV LINE X2 AND REMOVED RESTRAINTS. V/S TAKEN, STABLE AND RECORDED. CHARGE NURSE AWARE, WILL CONTINUE TO MONITOR.
--- NOTE | 2022-04-10 19:31 | NUR ---
RN CLOSING NOTES PATIENT AWAKE IN BED RESTING, A/O X 0-1. NO S/S OF PAIN NOTED AT THIS TIME. ON ROOM AIR, NO DISTRESS OR SHORTNESS OF BREATH NOTED. IV ACCESS LFA #20G, INTACT, PATENT, FLUSHING WELL. PATIENT WITH EXTERNAL CASH APPLICATIONS COORDINATOR WITH CURRENT READING OF SR AND HR OF 60, NO CARDIAC DISTRESS NOTED AT THIS TIME. PATIENT HAVE A CERRATO CATHETER IN PLACE AND DRAINING WELL, OUTPUT 700ML. FALL AND SAFETY MEASURES IN PLACE, BED ALARM ON, BED IN LOW LOCK POSITION, CALL LIGHT AND TABLE WITHIN EASY REACH, SIDE RAILS UP X2. WILL ENDORSE TO ACADEMIC RECORDS SPECIALIST.
--- NOTE | 2022-04-10 19:50 | NUR ---
RESIDENTIAL PLUMBER OPENING NOTES RECEIVED PATIENT SLEEPING IN BED, A/O X 0-1. NO S/S OF PAIN NOTED AT THIS TIME. ON ROOM AIR, NO DISTRESS OR SHORTNESS OF BREATH NOTED. IV ACCESS LFA #20G, INTACT, PATENT, FLUSHING WELL. PATIENT WITH EXTERNAL WINDOW/DISTRIBUTION CLERK WITH CURRENT READING OF SR, NO CARDIAC DISTRESS NOTED AT THIS TIME. PATIENT HAVE A CERRATO CATHETER IN PLACE AND DRAINING WELL. FALL AND SAFETY MEASURES IN PLACE, BED ALARM ON, BED IN LOW LOCK POSITION, CALL LIGHT AND TABLE WITHIN EASY REACH, SIDE RAILS UP X2. WILL CONTINUE TO MONITOR THROUGHOUT THE SHIFT.
[2022-04-10 20:28] VITALS: BP 134/65
[2022-04-11 00:40] VITALS: BP 124/73
[2022-04-11] MEDS: ZOSYN IVPB 2.25 G in IV D5W 50ml IV SCH ×4 (05:02→23:26)
[2022-04-11 05:03] VITALS: BP 134/65
--- NOTE | 2022-04-11 06:25 | NUR ---
MIXING HOUSE OPERATOR CLOSING NOTES PATIENT AWAKE IN BED, A/O X 1. NO S/S OF PAIN NOTED AT THIS TIME. ON ROOM AIR, TOLERATING WELL, NO DISTRESS OR DISCOMFORT NOTED, IV ACCESS LFA #20G, INTACT, PATENT, FLUSHING WELL. PATIENT WITH EXTERNAL SHAPER OPERATOR WITH CURRENT READING OF SB AT 56, NO CARDIAC DISTRESS NOTED AT THIS TIME. WITH BILATERAL SOFT WRIST RESTRAINTS, VISUAL CHECK DONE Q15MIN, PATIENT HAVE A CERRATO CATHETER IN PLACE AND DRAINING WELL. ALL DUE MEDS GIVEN, KEPT DRY AND CLEAN, FALL AND SAFETY MEASURES IN PLACE, BED ALARM ON, BED IN LOW LOCK POSITION, CALL LIGHT AND TABLE WITHIN EASY REACH, SIDE RAILS UP X2. WILL ENDORSE TO AM SHIFT NURSE FOR CONTINUITY OF CARE.
[2022-04-11 07:00] VITALS: BP 145/78
--- NOTE | 2022-04-11 07:00 | NUR ---
NEGATIVE SPOTTER OPENING NOTES PATIENT LAYING IN BED, A/OX 1, TURKMEN SPEAKING, TOLERATING WELL ON ROOM AIR WITH NO S/S RESPIRATORY DISTRESS. NO COMPLAINTS OF PAIN OR DISCOMFORT AT THIS TIME. L FA # [address] CLEAN, INTACT, AND FLUSHING WELL. TELE MONITOR IN PLACE READING SR 52. CERRATO CATHETER IN PLACE DRAINING CLEAR YELLOW URINE TO GRAVITY. L WRIST RESTRAINT IN PLACE WITH CIRCULATION, MOTOR, AND SENSATION INTACT DISTALLY. SAFETY MEASURES IN PLACE: BED IN LOWEST LOCKED POSITION, SIDE RAILS UP X 2, CALL LIGHT WITHIN REACH. WILL CONTINUE TO MONITOR.
[2022-04-11 07:01] LABS: BASOPHILS # (AUTO) 0.1 K/uL (0.0-0.2); BASOPHILS % (AUTO) 0.8 % (0.0-2.0); EOSINOPHILS % (AUTO) 3.3 % (0.0-6.0); HEMATOCRIT 38 % (33-45); HEMOGLOBIN 12.6 g/dL (11.5-14.8); LYMPHOCYTES # (AUTO) 1.7 K/uL (0.8-4.8); MEAN CORPUSCULAR HGB CONC 33 g/dl (31.0-36.0); MEAN CORPUSCULAR VOLUME 84 fL (82-100); MONOCYTES # (AUTO) 0.8 K/uL (0.1-1.30); MONOCYTES % (AUTO) 8.2 % (2.0-12.0); NEUTROPHILS # (AUTO) 6.9 K/uL (1.8-8.9); NEUTROPHILS % (AUTO) 70.7 % (43.0-81.0); PLATELET COUNT (AUTO) 165 K/uL (150-450); RED BLOOD CELL COUNT(AUTO) 4.53 MIL/uL (4.0-5.2); WHITE BLOOD COUNT (AUTO) 9.8 K/uL (4.3-11.0)
[2022-04-11 07:02] LABS: ALBUMIN 2.4 g/dL (3.4-5.0); BILIRUBIN,TOTAL 0.8 mg/dL (0.2-1.0); CALCIUM, SERUM 8.5 mg/dL (8.5-10.1); CREATININE 1.2 mg/dL (0.6-1.3); PHOSPHORUS 3.1 mg/dL (2.5-4.9); POTASSIUM 3.4 mmol/L (3.5-5.1); TOTAL PROTEIN, SERUM 6.1 g/dL (6.4-8.2)
[2022-04-11] MEDS: PANTOPRAZOLE 40 MG TABLET.DR PO SCH (07:30)
[2022-04-11] MEDS: ENSURE ENLIVE 237 ML LIQUID (VANILLA) PO SCH ×2 (08:15→16:44)
[2022-04-11] MEDS: ALLOPURINOL 100 MG TABLET PO SCH (08:15)
[2022-04-11] MEDS: CALCIUM CARBONATE (1250) 500 MG TABLET PO SCH ×3 (08:16→16:44)
[2022-04-11] MEDS: risperiDONE 0.25 MG TABLET PO SCH ×2 (08:16→16:44)
[2022-04-11] MEDS: SERTRALINE HCL 25 MG TABLET PO SCH (08:16)
[2022-04-11] MEDS: CLOPIDOGREL BISULFATE 75 MG TABLET PO SCH (08:16)
[2022-04-11] MEDS: NAMZARIC PO SCH (08:24)
[2022-04-11] MEDS: TIMOLOL MAL/DORZOLAM HCL OPHTH 10 ML BOTTLE EACHEYE SCH ×2 (08:24→16:47)
[2022-04-11] MEDS ORDERED: SPIRONOLACTONE 25 MG TABLET PO SCH ×2 (09:00)
[2022-04-11] MEDS ORDERED: POTASSIUM CHLORIDE 20 MEQ POWDER PACKET PO ONE (10:30)
[2022-04-11 12:00] VITALS: BP 134/68
[2022-04-11 16:00] VITALS: BP 155/78
[2022-04-11] MEDS: EYE EACHEYE SCH (17:26)
[2022-04-11] MEDS: VYZULTA 0.024% EACHEYE SCH (17:26)
--- NOTE | 2022-04-11 19:30 | NUR ---
RN OPENING NOTES RECEIVED PT IN BED, WITH EYES OPEN, NONVERBAL, WITH SON, JAY, AT BEDSIDE. PER SON, "IF SHE [MY MOM] IS ASLEEP, PLEASE DO NOT WAKE HER UP FOR VITALS." AOx1, SWISS SPEAKER. ON RA AND TOLERATING WELL. NO SOB NOTED. NO S/SX OF RESPIRATORY DISTRESS NOTED. TELE MONITOR DETECTS SINUS RHYTHM WITH 1ST DEGREE AV BLOCK AND RATE IN 50-60. CERRATO CATHETER IN PLACE: DRAINING CLEAR, YELLOW URINE. SAFETY PRECAUTIONS IN PLACE: BED IN LOWEST, LOCKED POSITION, SIDERAILS UPx2, AND BRAKES ON. TABLE AND CALL LIGHT WITHIN REACH. ALL NEEDS MET AT THIS TIME.
[2022-04-11 20:00] VITALS: BP 128/65
[2022-04-12] VITALS: BP 143/84
[2022-04-12 04:00] VITALS: BP 134/58
[2022-04-12] MEDS: ZOSYN IVPB 2.25 G in IV D5W 50ml IV SCH ×2 (05:22→12:30)
[2022-04-12 05:50] LABS: BASOPHILS # (AUTO) 0.1 K/uL (0.0-0.2); BASOPHILS % (AUTO) 0.9 % (0.0-2.0); EOSINOPHILS % (AUTO) 3.6 % (0.0-6.0); HEMATOCRIT 38 % (33-45); HEMOGLOBIN 12.5 g/dL (11.5-14.8); LYMPHOCYTES % (AUTO) 21.9 % (20.0-44.0); MEAN CORPUSCULAR HGB CONC 33 g/dl (31.0-36.0); MEAN CORPUSCULAR VOLUME 84 fL (82-100); MONOCYTES # (AUTO) 0.8 K/uL (0.1-1.30); MONOCYTES % (AUTO) 8.5 % (2.0-12.0); NEUTROPHILS % (AUTO) 65.1 % (43.0-81.0); PLATELET COUNT (AUTO) 185 K/uL (150-450); RED BLOOD CELL COUNT(AUTO) 4.57 MIL/uL (4.0-5.2); WHITE BLOOD COUNT (AUTO) 9.3 K/uL (4.3-11.0)
[2022-04-12 06:55] LABS: CALCIUM, SERUM 8.9 mg/dL (8.5-10.1); CREATININE 1.2 mg/dL (0.6-1.3); POTASSIUM 3.7 mmol/L (3.5-5.1)
--- NOTE | 2022-04-12 07:02 | NUR ---
RN CLOSING NOTES PT LAYING IN BED, AWAKE. AOx1, SOUTH SUDANESE SPEAKER. ON RA AND TOLERATING WELL. NO SOB NOTED. NO S/SX OF RESPIRATORY DISTRESS NOTED. TELE MONITOR DETECTS SINUS RHYTHM WITH 1ST DEGREE AV BLOCK AND RATE IN 50-60. CERRATO CATHETER IN PLACE: DRAINING CLEAR, YELLOW URINE. ALL ORDERS CARRIED OUT. ALL NEEDS MET. PT KEPT CLEAN AND DRY. SAFETY PRECAUTIONS IN PLACE: BED IN LOWEST, LOCKED POSITION, SIDERAILS UPx2, AND BRAKES ON. TABLE AND CALL LIGHT WITHIN REACH. WILL ENDORSE TO ONCOMING SHIFT FOR RAFI.
--- NOTE | 2022-04-12 07:10 | NUR ---
AUTO BODY SERVICE MECHANIC OPENING NOTES RECEIVED PT IN BED . AOx1, MARTINIQUAIS SPEAKER. ON RA AND TOLERATING WELL. NO SOB NOTED. NO S/SX OF RESPIRATORY DISTRESS NOTED. TELE MONITOR DETECTS SINUS RHYTHM WITH 1ST DEGREE AV BLOCK AND RATE IN 50-60. CERRATO CATHETER IN PLACE: DRAINING CLEAR, YELLOW URINE. SAFETY PRECAUTIONS IN PLACE: BED IN LOWEST, LOCKED POSITION, SIDERAILS UPx2, AND BRAKES ON. TABLE AND CALL LIGHT WITHIN REACH. ALL NEEDS MET AT THIS TIME.
[2022-04-12 08:00] VITALS: BP 145/73
[2022-04-12] MEDS: CALCIUM CARBONATE (1250) 500 MG TABLET PO SCH ×2 (08:57→12:31)
[2022-04-12] MEDS: ALLOPURINOL 100 MG TABLET PO SCH (08:57)
[2022-04-12] MEDS: CLOPIDOGREL BISULFATE 75 MG TABLET PO SCH (08:57)
[2022-04-12] MEDS: PANTOPRAZOLE 40 MG TABLET.DR PO SCH (08:57)
[2022-04-12] MEDS: risperiDONE 0.25 MG TABLET PO SCH (08:59)
[2022-04-12] MEDS: SERTRALINE HCL 25 MG TABLET PO SCH (08:59)
[2022-04-12] MEDS: ENSURE ENLIVE 237 ML LIQUID (VANILLA) PO SCH (09:01)
[2022-04-12] MEDS: TIMOLOL MAL/DORZOLAM HCL OPHTH 10 ML BOTTLE EACHEYE SCH (10:01)
[2022-04-12] MEDS: NAMZARIC PO SCH (10:01)
--- NOTE | 2022-04-12 12:30 | NUR ---
CLAIMS EXAMINER NOTE RECEIVED ORDER FROM TO REMOVE CERRATO CATH, CERRATO CATH REMOVED ORDERED. PROCEDURE TOLERATED WELL. IN STABLE CONDITION.
--- NOTE | 2022-04-12 14:10 | NUR ---
SHIPPING INSPECTOR NOTE PATIENT WAS RESTLESS AND HAD PEED ACCIDENTALLY ON THE BED. CHANGED PADS AND PATIENT KEPT ON BED. COMFORT MEASURES PROVIDED. AWAITING FAMILY TO MANAGER CHEMICAL PATIENT. PICTURES TAKEN BUT PATIENT REFUSED TO COOPERATE IN TAKING THE THE SACRUM. COMFORT MEASURES PROVIDED. WILL CONTINUE TO MONITOR.
--- NOTE | 2022-04-12 15:00 | NUR ---
PT IS DISCHARGED HOME PER MD ORDER. DISCHARGE INSTRUCTION GIVEN TO HER DAUGHTER, SHERI. SHERI VERBALIZED UNDERSTANDING. PATIENT IS CALM, NO S/S OF DISTRESS. PT IS WHEELED DOWN VIA WHEELCHAIR OUT OF THE HOSPITAL, AND BEING TRANSPORTED BY PRIVATE CAR. Addendum: 04/12/22 at 1613 by CONSTANCE RAMIREZ RN ADDENDUM IV ACCESS REMOVED AND COVERED WITH DRY DRESSING, TOLERATED WELL. IN STABLE CONDITION. ENDORSED ACCORDINGLY.
== END 2022-04-12 15:15 | disposition home or self-care (01) | DRG 871 ==
LOC: ER 19:50 → TELE 22:50
PROVIDERS: ATTEND Nurse Practitioner Acute Care
DX: A41.9 Sepsis, unspecified organism (principal); N17.0 Acute kidney failure with tubular necrosis; N39.0 Urinary tract infection, site not specified; E87.0 Hyperosmolality and hypernatremia; F29 Unspecified psychosis not due to a substance or known physiological condition; Z20.822 Contact with and (suspected) exposure to COVID-19; F03.90 Unspecified dementia, unspecified severity, without behavioral disturbance, psychotic disturbance, mood disturbance, and anxiety; E11.9 Type 2 diabetes mellitus without complications; E78.5 Hyperlipidemia, unspecified; E88.09 Other disorders of plasma-protein metabolism, not elsewhere classified; I10 Essential (primary) hypertension; M19.90 Unspecified osteoarthritis, unspecified site; Z79.02 Long term (current) use of antithrombotics/antiplatelets; Z79.899 Other long term (current) drug therapy; Z79.82 Long term (current) use of aspirin; F32.A Depression, unspecified; Z68.34 Body mass index [BMI] 34.0-34.9, adult; E66.9 Obesity, unspecified; S80.12XA Contusion of left lower leg, initial encounter; X58.XXXA Exposure to other specified factors, initial encounter; Y92.9 Unspecified place or not applicable; E87.6 Hypokalemia; B96.20 Unspecified Escherichia coli [E. coli] as the cause of diseases classified elsewhere; H54.7 Unspecified visual loss
CPT/HCPCS: 36415; 71045-TC; 76770-TC; 80048-TC; 80053-TC; 80076-TC; 81001; 83605-TC; 83735-TC; 83880; 84100-TC; 84443-TC; 84484-TC; 85025-TC; 85730-TC; 86850-TC; 87040-TC; 87081-TC; 87086-TC; 87186-TC; 97112-TC; 97116-TC; 97530-TC; C9803; G0378; J2060; J2543; J3370; J7030; J7060